=== PATIENT | male | born 1980 | race Caucasian/White ===

== ENCOUNTER → 2021-02-21 | Outpatient (CLI) | payer BC ==
--- NOTE | 2021-02-21 17:58 | CONS ---
CONSULTATION REASON FOR CONSULTATION: Sleep apnea. This is a very pleasant 41-year-old male patient coming in for a re-evaluation regarding obstructive sleep apnea. 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 He works for the [employer]. 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 He carries a diagnosis of obstructive sleep apnea. This was diagnosed through a sleep study in [place], [place] back in 2010. At that time, the patient's disease was found to be severe. He was given only a split-night study. During the second part, which is the treatment phase of the split night, the patient was unable to tolerate the CPAP therapy. Based on that, he was not given any further treatment. Over the years, there was another attempt to do a home sleep study which failed. This was done by another sleep center and the patient ultimately was referred to me for further advice. For now, the patient feels quite tired, sleepy and somnolent. He is worried that he may not be able to tolerate CPAP again and he is also seeking other alternatives, should CPAP therapy or BiPAP therapy fail. For now, the patient is working midnights. He has to be at work around 11:15 p.m. He gets home by around 8 a.m. He goes to bed around 9 a.m. and sleeps through to 2 p.m. He takes another nap between 9:30 p.m. and 10:30 p.m. No recent weight gain. He snores. He has increased tiredness and sleepiness. However, he does not fall asleep while driving. He does not fall asleep on the job, although he has taken some occasional short naps. While sleeping, he wakes up choking and gasping for air. He is a light sleeper. He gets worse on his back. He has gained some weight. He has bruxism and he grinds his teeth. No cardiovascular disease. No heart attack. No stroke. No substance abuse. No restlessness in the lower extremities. No sleepwalking. No sleeptalking. No parasomnias. No other significant comorbidities. PAST MEDICAL HISTORY: Obesity, obstructive sleep apnea, hypothyroidism. PAST SURGICAL HISTORY: Past surgical history includes left knee meniscal repair and umbilical hernia repair. DRUG ALLERGIES: Mainly towards ANTIBIOTICS. FAMILY HISTORY: Mother is alive, diagnosed with cancer. She also has hypothyroidism. SOCIAL HISTORY: The patient is a nonsmoker. No history of alcoholism. No history of IV drugs. He is currently . REVIEW OF SYSTEMS: A 14-point review of systems was done. No history of depression. No angina. No palpitations. No heartburn. No chest pain. No head trauma. No substance abuse. No anxiety or depression at this point in time. PHYSICAL EXAMINATION: VITAL SIGNS: BP is 137/75, pulse 73, respirations 16, temperature 98.1, saturation 95% on room air. Height is 5 feet 9 inches, weight is 245, BMI 36.1, and neck size is 17 inches. GENERAL APPEARANCE: Calm, comfortable, obese. HEAD: Atraumatic, normocephalic. NECK: Supple. No goiter or neck masses. Mallampati class 4. LUNGS: Diminished. Otherwise clear. HEART: Heart sounds are regular rate and rhythm. Normal S1, S2. No S3, S4. No murmurs. ABDOMEN: Soft, nontender. No organomegaly. EXTREMITIES: No edema. No cyanosis or clubbing. IMPRESSION: 1. Obstructive sleep apnea. Based on the reported history, the patient was diagnosed having MICHELLE back in 2010. Also, based on the reported history, I suspect that the patient's sleep apnea is severe, knowing that he was given a split-night study, which makes me think that he had an a AHI of at least 40. Nevertheless, he failed his titration, and for that reason he was not offered a CPAP unit. He is considering a re-evaluation. He is considering going back on CPAP or BiPAP therapy. He is also interested in other technologies such as the Inspire system. The other technology will be considered if the patient fails CPAP/BiPAP. 2. Chronic hypersomnia. Current Powers score is 12. 3. Obesity with a BMI of 36.1. 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 5. Chronic fatigue and somnolence. 6. Hypothyroidism. PLAN: Will set up this patient for a polysomnogram. This will be a daytime study to reevaluate the presence of sleep apnea. I would like following that to do an in-lab CPAP titration, knowing that the patient has had difficulties with tolerating CPAP and he has also issues with poor tolerability to CPAP therapy. It will be chou to do an in- lab CPAP titration to try different modes of treatment, including CPAP or BiPAP and go over different mask interfaces to make the treatment more successful for this patient. Alternatives such as Inspire treatment will be considered, should he fail. Nevertheless, at first glance, the patient may not be a candidate for the inspire system because of his elevated body mass index. Encourage weight loss. Implement sleep hygiene measures. Will continue to follow. Final recommendations will be done after completing his screening polysomnogram and a CPAP titration. High suspicion for severe symptomatic obstructive sleep apnea. We will continue to follow. MMODL / IJN: [id number] /
== END ==
LOC: SLEEP 14:34
PROVIDERS: ATTEND Internal Medicine Critical Care Medicine
DX: G47.33 Obstructive sleep apnea (adult) (pediatric) (principal); E66.9 Obesity, unspecified; E03.9 Hypothyroidism, unspecified; Z68.36 Body mass index [BMI] 36.0-36.9, adult; Z99.89 Dependence on other enabling machines and devices
CPT/HCPCS: 99202

== ENCOUNTER → 2021-06-06 | Outpatient (CLI) | payer BC ==
--- NOTE | 2021-06-06 15:26 | PN ---
PROGRESS NOTE SLEEP CENTER PROGRESS NOTE: Ariel is a 41-year-old male patient who is coming to see me for a followup. The patient is currently using an APAP unit for a diagnosis of mild obstructive sleep apnea. The patient was diagnosed having MICHELLE, mild in severity, and the patient's AHI at baseline was recorded to be at around 13. 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 He was having excessive hypersomnia and sleepiness and for that reason, the treatment was recommended. He is feeling much better. He is waking up refreshed and alert during the day. His functionality at work and working hours have improved considerably. As such, the patient is committed to ongoing CPAP therapy. He currently has a newer- generation ResMed APAP unit at a pressure minimum of 5, maximum of 15. Based on the compliance data, the patient has been averaging around 5.9 hours of CPAP use per night with an average pressure of 8 cm of water and his AHI is down to 2.2. He has no other new complaints otherwise for now. He is committed to the treatment. REVIEW OF SYSTEMS: Fourteen-point review of systems was done. Positive findings are mentioned in history of present illness. MEDICATIONS: Medications includes Synthroid 200 mcg p.o. daily. PHYSICAL EXAMINATION: BP is 123/77, pulse 66, respirations 16, temperature 98.1, saturation 98% on room air. Height is 5 feet 8 inches, weight is 251, BMI 37.6. GENERAL APPEARANCE: Calm, comfortable. HEAD: Atraumatic, normocephalic. Neck is supple. No JVD. No goiter or neck masses. Mallampati class IV. LUNGS: Clear to auscultation. Heart sounds are regular rate and rhythm. Normal S1, S2. No S3, S4. No murmurs. ABDOMEN: Soft, nontender. No organomegaly. EXTREMITIES: No edema. No cyanosis or clubbing. NEUROLOGICAL: Awake and alert. There is no focal neurological deficit. Psychiatry is negative for anxiety or depression. IMPRESSION: 1. Symptomatic obstructive sleep apnea. AHI of 12, currently undergoing successful CPAP therapy with an APAP mode. 2. Hypersomnia, improved. 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 4. Obesity. BMI of 36. 5. Chronic hypersomnia, improved. 6. Bruxism. 7. Chronic fatigue, improved. 8. Hypothyroidism. PLAN: 1. Continue CPAP therapy at a pressure minimum of 5, maximum of 15, APAP mode. 2. The patient is benefitting. He has a full-face mask. He is committed to CPAP therapy. Symptoms have improved. Encourage weight loss. See me back in a year's time in followup. SHANT / NELYN: [id number] /
== END ==
LOC: SLEEP 13:15
PROVIDERS: ATTEND Internal Medicine Critical Care Medicine
DX: G47.33 Obstructive sleep apnea (adult) (pediatric) (principal); E66.9 Obesity, unspecified; G47.63 Sleep related bruxism; E03.9 Hypothyroidism, unspecified; Z68.36 Body mass index [BMI] 36.0-36.9, adult; Z99.89 Dependence on other enabling machines and devices; Z79.890 Hormone replacement therapy